=== PATIENT | female | born 1995 | race Caucasian/White ===

== ENCOUNTER → 2016-10-24 | Outpatient (CLI) | payer OTHER ==
[~2016-10-24] MED LIST: IBUPROFEN800 MG PO; NO MEDICATIONS
--- NOTE | ~2016-10-24 | US98 ---
[facility] A Service of [facility] RADIOLOGY TEXT RESULTS PATIENT: ROSANNE HAMMOND LOCATION: [facility] : [birth year] UNIT #: [id number] AGE: [address]: Karin Tsang MD SEX: F ORDER DR: [id number] [facility] [address] [place], [place] [address] [id number] O MR#: [id number] Acc #: [id number] NAME: ROSANNE HAMMOND : 1995 SEX: F STUDY DATE/TIME: 10/24/2016 13:23 UNIT: [facility] ROOM: STUDY DESCRIPTION: US Pelvic Non-OB Complete Attending Physician: Karin Tsang M.D. Ordering Physician: Karin Tsang M.D. Primary Care Physician: Karin Tsang M.D. MEDICAL IMAGING REPORT This report is preliminary unless electronic signature is present EXAM Pelvic ultrasound 10/24 INDICATIONS Diffuse lower abdominal and pelvic pain over the last 5-6 months. TECHNIQUE Transabdominal and transvaginal imaging is performed of the pelvis in multiple planes. Transvaginal imaging is performed for better evaluation of the endometrium and adnexa. COMPARISON No comparison. FINDINGS Uterus measures 7.8 x 2.2 x about 4.8 cm. Urinary bladder is within normal limits. Endometrial stripe measures about 4 mm in thickness. Both ovaries show perfusion by Doppler. There is a dominant cyst on the right ovary measuring up to about 1.9 cm. Bilateral follicles are present. No adnexal masses are seen. IMPRESSION 1. Dominant 1.9 cm right ovarian cyst. Both ovaries show perfusion by Doppler. 2. Normal endometrial stripe. 3. No adnexal masses. 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 This cannot be confirmed on the images provided. Dictated by... Bryon Jo Jr., M.D. [facility] A Service of [facility] RADIOLOGY TEXT RESULTS PATIENT: ROSANNE HAMMOND LOCATION: [facility] : [birth year] UNIT #: [id number] AGE: [address]: Karin Tsang MD SEX: F ORDER DR: THIS IS AN ELECTRONICALLY VERIFIED REPORT Bryon Jo Jr., M.D. at 10/25/2016 6:58 PM RLK/to TD: 10/25/2016 14:49 JOB #: [id number] MEDICAL IMAGING REPORT Page 1 of 1 COPY
== END | disposition home or self-care (01) ==
LOC: CWCC 12:39
DX: R10.30 Lower abdominal pain, unspecified (principal); N83.201 Unspecified ovarian cyst, right side
CPT/HCPCS: 76830; 76856

== ENCOUNTER → 2017-03-02 | Outpatient (CLI) | payer OTHER ==
--- NOTE | ~2017-03-02 | CT4 ---
[facility] A Service of [facility] RADIOLOGY TEXT RESULTS PATIENT: ROSANNE HAMMOND LOCATION: [facility] : [birth year] UNIT #: [id number] AGE: [address]: Karin Tsang MD SEX: F ORDER DR: [id number] [address] [place], [place] [address] [id number] O MR#: [id number] Acc #: [id number] NAME: ROSANNE HAMMOND : 1995 SEX: F STUDY DATE/TIME: 03/02/2017 8:16 UNIT: [facility] ROOM: STUDY DESCRIPTION: CT Abd and Pelv Wo Cont Attending Physician: Karin Tsang M.D. Referring Physician: Karin Tsang M.D. Ordering Physician: Karin Tsang M.D. Primary Care Physician: Karin Tsang M.D. MEDICAL IMAGING REPORT This report is preliminary unless electronic signature is present EXAM CT abdomen and pelvis without contrast INDICATIONS Lower abdominal pain for mgz-ev-wdidd months. TECHNIQUE CT of the abdomen and pelvis was performed without contrast. Coronal and sagittal reformatted images were obtained. This CT exam was performed with one or more of the following radiation dose reduction techniques: automatic exposure control, adjustment of mA and/or kV according to patient size, and iterative reconstruction. No comparisons are available. FINDINGS The lung bases are clear. The liver, gallbladder and spleen are unremarkable. The kidneys, adrenal glands and pancreas are unremarkable. Pelvis: Colon is unremarkable. Appendix is normal. There is no free fluid. The bone windows are unremarkable. IMPRESSION There are no CT findings to explain the patient's symptoms. Dictated by... Narciso Mauricio M.D. THIS IS AN ELECTRONICALLY VERIFIED REPORT Narciso Mauricio M.D. at 03/02/2017 5:05 PM Lucía TD: 03/02/2017 10:33 [facility] A Service [facility] RADIOLOGY TEXT RESULTS PATIENT: ROSANNE HAMMOND [id number] [birth year] UNIT #: [id number] AGE: [address]: Karin Tsang MD SEX: F ORDER DR: BARB #: [id number] MEDICAL IMAGING REPORT Page 1 of 1 COPY
== END | disposition home or self-care (01) ==
LOC: CCAT 07:41
DX: R10.9 Unspecified abdominal pain (principal); R74.8 Abnormal levels of other serum enzymes
CPT/HCPCS: 74176